=== PATIENT | female | born 1955 | race African-American/Black ===

== ENCOUNTER 2022-03-05 11:28 | Emergency (ER) | payer MEDICAID ==
[~2022-03-05] VITALS: Ht 157.5 cm; Wt 52.3 kg
[2022-03-05] MEDS ORDERED: LIDOCAINE 5% TRANSDERMAL PATCH TD ONE (12:15)
[2022-03-05] MEDS ORDERED: KETOROLAC TROMETHAMINE 30 MG/ML VIAL IM ONE (12:15)
[2022-03-05] MEDS ORDERED: ACETAMINOPHEN 500 MG TABLET PO ONE (12:15)
[2022-03-05] MEDS ORDERED: IBUP-2070 PO (13:09)
[2022-03-05] MEDS ORDERED: LIDO700A15 TP (13:09)
[2022-03-05 13:33] VITALS: BP 132/80
== END 2022-03-05 13:35 | disposition home or self-care (01) ==
LOC: EMS 11:28
DX: M54.50 Low back pain, unspecified (principal); G89.29 Other chronic pain; I10 Essential (primary) hypertension
CPT/HCPCS: 99283; 96372; J1885

== ENCOUNTER 2024-05-22 18:07 | Emergency (ER) | payer MEDICARE, MEDICAID ==
[~2024-05-22] VITALS: Ht 152.4 cm; Wt 52.0 kg
[~2024-05-22 18:07] MED LIST: IBUP-1492 PO; LIDO700A15 TP
[2024-05-22] MEDS ORDERED: CHLO25TA3 PO (18:19)
[2024-05-22 18:35] LABS: APPEARANCE,URINE CLEAR (CLEAR); BILIRUBIN,URINE NEGATIVE (NEGATIVE); COLOR,URINE YELLOW (YELLOW); GLUCOSE, URINE (UA) NEGATIVE (NEGATIVE); KETONES,URINE NEGATIVE (NEGATIVE); LEUKOCYTE ESTERASE ,URINE NEGATIVE (NEGATIVE); NITRATE,URINE NEGATIVE (NEGATIVE); OCCULT BLOOD,URINE NEGATIVE (NEGATIVE); PH,URINE 6.5 (5.0-8.0); PROTEIN,URINE NEGATIVE (NEGATIVE); SPECIFIC GRAVITIY, URINE 1.025 (1.003-1.030); UROBILINOGEN,URINE <=1.0 mg/dL (<=1.0)
[2024-05-22 19:42] LABS: BASOPHILS % (AUTO) 0.3 % (0.0-2.0); EOSINOPHILS % (AUTO) 0.2 % (1.0-6.0); LYMPHOCYTES # (AUTO) 1.2 K/uL (1.0-4.8); LYMPHOCYTES % (AUTO) 22.3 % (22.0-44.0); MEAN CORPUSCULAR HEMOGLOBIN 32.7 pg (26.0-34.0); MEAN CORPUSCULAR HGB CONC 33.4 G/dL (31.0-37.0); MEAN CORPUSCULAR VOLUME 98 fL (80-100); MONOCYTES # (AUTO) 0.3 K/uL (0.1-1.0); MONOCYTES % (AUTO) 5.2 % (2.0-9.0); PLATELET COUNT (AUTO) 142 K/uL (150-450); RED BLOOD CELL COUNT(AUTO) 4.59 MIL/uL (4.00-5.20); RED CELL DISTRIBUTION WIDTH 13.5 % (11.5-14.5); WHITE BLOOD COUNT (AUTO) 5.5 K/uL (4.5-11.0)
[2024-05-22 19:48] LABS: ANION GAP 5 mmol/L (8-16); CALCIUM, TOTAL 9.7 mg/dL (8.8-10.5); CARBON DIOXIDE 33 mmol/L (22-29); CHLORIDE 99 mmol/L (98-107); CREATININE 0.82 mg/dL (0.60-1.30); GLOMERULAR FILTR. RATE CALC > 60 mL/min (>60); GLUCOSE,RANDOM 101 mg/dL (70-110); POTASSIUM 3.6 mmol/L (3.5-5.1); SODIUM SERUM 137 mmol/L (136-145); UREA NITROGEN, BLOOD 14 mg/dL (7-18)
[2024-05-22 19:53] LABS: ALANINE AMINOTRANSFERASE 22 U/L (12-78); ALBUMIN 3.9 g/dL (3.4-5.0); ALKALINE PHOSPHATASE 66 U/L (46-116); ASPARTATE AMINOTRANSFERASE 23 U/L (15-37); BILIRUBIN,TOTAL 1.3 mg/dL (0.1-1.0)
[2024-05-22] MEDS ORDERED: LIDOCAINE 5% TRANSDERMAL PATCH TD ONE (20:45)
[2024-05-22] MEDS ORDERED: KETOROLAC TROMETHAMINE 30 MG/ML VIAL IVP ONE (20:45)
[2024-05-22] MEDS: KETOROLAC TROMETHAMINE 30 MG/ML VIAL IM ONE (21:33)
[2024-05-22] MEDS: CYCLOBENZAPRINE HCL 10 MG TABLET PO ONE (21:34)
[2024-05-22 21:51] VITALS: TEMP 98.5
[2024-05-22] MEDS ORDERED: IBUP-1492 PO (21:51)
[2024-05-22] MEDS ORDERED: CYCL-448 PO (21:51)
[2024-05-23 02:28] VITALS: BP 109/70; PULSE 65; RESP 20; O2SAT 100
== END 2024-05-23 02:49 | disposition home or self-care (01) ==
LOC: EMS 18:07
DX: G89.29 Other chronic pain (principal); M54.50 Low back pain, unspecified; I10 Essential (primary) hypertension
CPT/HCPCS: 99283; 80048; 80076; 81003; 85025; 36415; 96372; J1885